=== PATIENT | female | born 1960 | race Caucasian/White ===

== ENCOUNTER → 2024-09-07 | Outpatient (CLI) | payer OTHER, SELFPAY ==
--- NOTE | 2024-09-07 | XR_ITS ---
Examination: PA lateral chest 2 views TECHNIQUE: Upright PA lateral chest 2 views INDICATIONS: COPD with difficulty breathing today. FINDINGS: Moderate hyperexpansion Normal heart size No pneumonia or pulmonary edema Partial visualization orthopedic hardware right humerus IMPRESSION: COPD No pneumonia or pulmonary edema
== END | disposition home or self-care (01) ==
PROVIDERS: PCP Nurse Practitioner Family; Referring Provider Nurse Practitioner Family; Visit Provider Nurse Practitioner Family
DX: J44.9 Chronic obstructive pulmonary disease, unspecified (principal)
CPT/HCPCS: 71046

== ENCOUNTER → 2024-10-23 | Outpatient (CLI) | payer OTHER, SELFPAY ==
--- NOTE | 2024-10-23 11:30 | XR_ITS ---
Examination: CT soft tissue neck, with intravenous contrast. 2-D coronal reconstructions. 2-D sagittal reconstructions. Date and time of exam :October 23, 2024 1205 hours INDICATIONS: Difficulty swallowing one month with palpable lymph nodes in the neck. CTDI: vol (mGy):12.7 DLP: (mGycm):355 Technique: 1.25 mm axial sections of the neck of the obtained. Coronal and sagittal reconstructions have been obtained. Intravenous contrast administered 50 cc Isovue-370. Low dose protocols were performed. One or more of the following dose reduction techniques were used; automated exposure control, adjustment of the mA and/or KV according to patient size, use of iterative reconstruction technique. Findings: Acute bilateral maxillary sinusitis Moderate hypertrophy right inferior nasal turbinate Symmetrical nasopharynx oropharynx Symmetrical submandibular glands Symmetrical parotid glands No pathologic carotid triangle submental or posterior cervical lymphadenopathy 7 mm left thyroid nodule Normal epiglottis No prevertebral soft tissue prominence Advanced degenerative disc disease C4-C5 IMPRESSION: Acute bilateral maxillary sinusitis No pathologic cervical lymphadenopathy 7 mm left thyroid nodule, recommend dedicated thyroid sonography follow-up Normal epiglottis Advanced degenerative disc disease C4-C5 Given the patient's presentation, consider elective fluoroscopically guided esophagram follow-up
== END | disposition home or self-care (01) ==
LOC: SCAT 10:50
PROVIDERS: PCP Family Medicine; Referring Provider Nurse Practitioner Family; Visit Provider Nurse Practitioner Family
DX: J32.0 Chronic maxillary sinusitis (principal); E04.1 Nontoxic single thyroid nodule; M50.321 Other cervical disc degeneration at C4-C5 level
CPT/HCPCS: 70491; A4649; Q9967

== ENCOUNTER → 2024-12-07 | Outpatient (CLI) | payer OTHER, SELFPAY ==
--- NOTE | 2024-12-07 15:00 | XR_ITS ---
Examination: Thyroid sonography complete TECHNIQUE: Grayscale sonographic images thyroid lobes are carful analysis Exam date and time: December 07, 2024 1503 hours INDICATIONS: Thyroid nodule on CT examination soft tissue October 23, 2024 FINDINGS: Right thyroid 4.8 cm Upper pole nodule 7 x 5 mm Left thyroid 4.5 cm Midpole nodule 12 x 12 mm Lower pole nodule 7 x 4 mm IMPRESSION: Bilateral thyroid nodules as above
== END | disposition home or self-care (01) ==
LOC: CDIM 14:42
PROVIDERS: PCP Nurse Practitioner Family; Referring Provider Nurse Practitioner Family; Visit Provider Nurse Practitioner Family
DX: E04.2 Nontoxic multinodular goiter (principal)
CPT/HCPCS: 76536

== ENCOUNTER → 2024-12-10 | Outpatient (CLI) | payer OTHER, SELFPAY ==
--- NOTE | 2024-12-10 08:30 | XR_ITS ---
Examination: CT right ankle, without contrast. 2-D sagittal reconstructions. 2-D coronal reconstructions. 3-D reconstructions. Date and time of exam:December 10, 2024 0816 hours INDICATIONS: Injury to the ankle one year ago, ankle pain CTDI: vol (mGy):4.79 DLP: (mGycm):133 Technique: Multiple 1.25 mm axial sections of the right ankle have been obtained. 2-D sagittal and coronal reconstructions have been obtained. 3-D reconstructions have been obtained. Low dose protocols were performed. One or more of the following dose reduction techniques were used; automated exposure control, adjustment of the mA and/or KV according to patient size, use of iterative reconstruction technique. Findings: Distal tibia and distal fibula intact Old bone density at the fibular tip Mild narrowing tibiotalar joint and subtalar joint Talus, calcaneous intact, tiny plantar posterior bony calcaneal spurs Navicular cuboid cuneiforms and metatarsals visualized intact IMPRESSION: Mild osteoarthritis No acute fracture Consider MRI ankle without contrast follow-up
== END | disposition home or self-care (01) ==
PROVIDERS: Referring Provider Podiatrist; Visit Provider Podiatrist
DX: M19.071 Primary osteoarthritis, right ankle and foot (principal); S99.911S Unspecified injury of right ankle, sequela; X58.XXXS Exposure to other specified factors, sequela
CPT/HCPCS: 73700

== ENCOUNTER → 2024-12-15 | Outpatient (CLI) | payer OTHER, SELFPAY ==
--- NOTE | 2024-12-15 15:15 | XR_ITS ---
Examination: Screening digital mammography, bilateral Computer aided detection 3-D breast Tomosynthesis, bilateral Date and time of exam: December 15, 2024 1440 hours COMPARISON: December 04, 2023 Indication: Screening, family history breast cancer Technique: Nonmagnified MLO, CC views of the breasts to been obtained, reconstructed from 3-D Tomosynthesis images. R2 computer aided detection program utilized for evaluation of suspicious masses and/or abnormal calcifications. 3-D Tomosynthesis images obtained. Findings: Scattered areas of fibroglandular density. Benign calcifications. No interval suspicious masses Impression: BI-RADS category II: Benign Findings. Recommend 1 year follow-up mammogram.
== END | disposition home or self-care (01) ==
LOC: CDIM 14:18
PROVIDERS: Referring Provider Nurse Practitioner Family; Visit Provider Nurse Practitioner Family
DX: Z12.31 Encounter for screening mammogram for malignant neoplasm of breast (principal); R92.323 Mammographic fibroglandular density, bilateral breasts; R92.1 Mammographic calcification found on diagnostic imaging of breast
CPT/HCPCS: 77063; 77067

== ENCOUNTER 2025-07-23 19:48 | Emergency (ER) | payer OTHER, SELFPAY ==
[2025-07-23 19:53] VITALS: PULSE 82; RESP 18; O2SAT 96; BMI 37.2
--- NOTE | 2025-07-23 19:58 | XR_ITS ---
Examination: Shoulder, left, 3 views Technique: Shoulder AP internal rotation, AP external rotation, Y view shoulder, 3 views Exam date and time : July 23, 2025, 2024 hours INDICATION: Patient fell today with injury to the shoulder, shoulder pain. FINDINGS: Acute fractures proximal humerus, up to 24 mm offset of the main fracture fragments No shoulder dislocation Clavicle intact IMPRESSION: Acute displaced comminuted fractures proximal humerus
--- NOTE | 2025-07-23 19:58 | XR_ITS ---
Examination: CT brain head without contrast. 2-D sagittal coronal reconstructions Date and time of exam: July 23, 20252016 hours INDICATION: Patient fell today with injury to head, pain involving the back of the head CTDI: vol (mGy): 46.7 DLP: (mGycm): 957 Technique: Multiple CT axial sections of the brain have been obtained, 5 mm slice thickness. Contrast has not been administered. 2-D sagittal, coronal reconstructions have been obtained Low dose protocols were performed. One or more of the following dose reduction techniques were used; automated exposure control, adjustment of the mA and/or KV according to patient size, use of iterative reconstruction technique. Findings: No significant ventricular enlargement. Intra-axial or extra-axial hemorrhage density is not seen. No mass effect or midline shift Basal cisterns are not remarkable. Fourth ventricle is midline. Cranial vault intact. Significant sinusitis including left maxillary acute sinusitis Impression: Negative for acute hemorrhage, mass effect or midline shift
[2025-07-23 19:59] VITALS: BP 112/58; PULSE 80; RESP 15; TEMP 36.9; O2SAT 95
--- NOTE | 2025-07-23 20:01 | EDNOTE_ITS ---
ED Fall Injury RME/HPI General Chief Complaint: Fall Stated Complaint: FALL Time Seen by Provider: 07/23/25 19:55 Arrival date/time: 07/23/25 19:48 64-year-old female patient was brought in by EMS for evaluation regarding ground-level fall. Patient sustained a ground-level fall, after patient stepped on a garden hose resulting into pain to the left shoulder, with deformity. Patient also sustained abrasion to the right forearm. Denies any head injury denies any neck pain. Patient is not taking any blood thinner except for aspirin. No medication was taken prior to ER visit. Related Data Home Medications ?Medication ?Instructions ?Recorded ?Confirmed albuterol 90 mcg-budesonide 80 2 inh inhalation QDAY P RN 05/06/24 06/30/24 mcg/actuation HFA aerosol inhaler Shortness Of Breath (Airsupra) aspirin 81 mg tablet,delayed 81 mg PO QDAY 05/06/24 release budesonide 160 mcg-glycopyr 9 2 inh inhalation BID 06/30/24 mcg-formot 4.8 mcg/actuation HFA inhaler (Breztri Aerosphere) duloxetine 60 mg capsule,delayed 60 mg PO QDAY 4 06/30/24 release (Cymbalta) hydrochlorothiazide 25 mg tablet 25 mg PO QAM 05/06/24 07/02/24 hydrocodone 10 mg-acetaminophen 1 tab PO BID PRN Pain 05/06/24 06/30/24 325 mg tablet losartan 100 mg tablet 100 mg PO QDAY 05/06/2406/23 metformin 1,000 mg tablet 500 mg PO BID 05/06/2406/30 omeprazole 40 mg capsule,delayed 40 mg PO QDAY 4 06/30/24 release pregabalin 100 mg capsule (Lyrica) 100 mg PO BID 05/0607/02/24 simvastatin 40 mg tablet (Zocor) 40 mg PO QPM 05/06/24 06/30/24 topiramate 50 mg tablet (Topamax) 50 mg PO HS 05/06/24 06/30/24 dulaglutide 3 mg/0.5 mL 3 mg subcut QWEEK 06/30/24 1 subcutaneous pen injector (Trulicity) Allergies Allergy/AdvReac Type Severity Reaction Status Date / Time No Known Allergies Allergy Verified 07/02/24 11:11 Review of Systems Review of Systems Narrative Review of Systems: Review of system reviewed and within normal limits except mentioned in HPI ED Exam Narrative Physical exam: VITAL SIGNS: Reviewed. GENERAL APPEARANCE: Alert and interactive, follows commands, no acute distress, HEAD AND FACE: Non-traumatic. ENT: PERRL, pink conjunctivitis, eyelid no trauma, Mucous membrane moist. NECK: Supple, nontender, no nuchal rigidity. CHEST: No tenderness, no crepitus, no paradoxical movement, no retractions. LUNGS: Clear, well ventilated, symmetric, no rales, no wheezing, no ronchi, no stridor, good breath sounds bilaterally. HEART: Regular rate, regular rhythm, no murmur, no gallops. ABDOMEN: Soft, positive bowel sounds, nondistended, no guarding, nontender, no rebound, no masses, RECTAL: Deferred. GENITAL: Deferred. NEUROLOGICAL: Gross motor function intact sensory function intact, Appropriate for age. MUSCULOSKELETAL: low back nontender, full range of motion. EXTREMITIES: Left arm tenderness, no swelling, with limitation range of motion. Distal neurovascular status intact. Right forearm abrasion, no deformity nontender SKIN: Color pink, dry, no rash, no lacerations, no abrasions, no contusions. LYMPHATICS: Deferred. Course Quality Measures none Orders Category Date Time Status sling [Splint / Immobilizer] STAT Care 07/23/25 19:[address] head/brain wo con Stat Exams 07/23/25 19:58 Completed XR shoulder LT min 2V Stat Exams 07/23/25 19:58 Completed Morphine* Inj Med 07/23/25 19:58 Discontinued 4 mg IM X1 ONE Morphine* Inj Med 07/23/25 20:14 Discontinued 4 mg IVP X1 ONE Ondansetron Inj [Zofran Inj] Med 07/23/25 20:14 Discontinued 4 mg IVP X1 ONE Ondansetron Odt [Zofran Odt] Med 07/23/25 19:58 Discontinued 4 mg PO X1 ONE Vital Signs Vital signs: Vital Signs Temperature 98.4 F 07/23/25 19:59 Pulse Rate 80 07/23/25 19:59 Respiratory Rate 15 07/23/25 19:59 Blood Pressure 112/58 L 07/23/25 19:59 Pulse Oximetry (%) 95 07/23/25 19:59 Oxygen Delivery Method Room Air 07/23/25 19:59 Fall [facility] Narrative [facility] Narrative:: 64-year-old female patient was brought in by EMS for evaluation regarding ground-level fall. Patient sustained a ground-level fall, after patient stepped on a garden hose resulting into pain to the left shoulder, with deformity. Patient also sustained abrasion to the right forearm. Denies any head injury denies any neck pain. Patient is not taking any blood thinner except for aspirin. No medication was taken prior to ER visit. CT scan of the head came back unremarkable. X-ray of the shoulder showed comminuted fracture of the proximal humerus. Patient was placed in a sling. Patient is able to ambulate without so much pain to the left arm. Patient was advised to follow-up with PCP in 1 to 2 days for referral to orthopedic surgeon for definitive management of the proximal humerus fracture. Post application of sling there is no changes in the neurovascular status. Distal neurovascular status intact. Left upper extremity. Stable for charged home Patient data External records reviewed:: None Clinical information provided by:: patient and family Social determinants that could affect healthcare access:: none Patient has the following chronic illnesses:: Chronic pain syndrome hypertension diabetes mellitus How is presenting disease/condition affected by chronic disease/condition?: exacerbated by Evaluation data The following diagnostics were reviewed and interpreted by me:: radiology exam(s) Lab and/or radiology exams considered but not ordered:: None Interpretation Summary: See results [facility] Medications / Prescriptions Medications or Prescriptions considered but not ordered:: None Medication administrations:: Medication Administration History Discontinued Medications Morphine Sulfate (Morphine Sulf Inj 4 Mg/Ml Vial) 4 mg IM X1 ONE Stop: 07/23/25 19:59 Last Admin: 07/23/25 20:14 Dose: Not Given Documented By: EF Non-Admin Reason: Cancelled by Provider Morphine Sulfate (Morphine Sulf Inj 4 Mg/Ml Vial) 4 mg IVP X1 ONE Stop: 07/23/25 20:15 Last Admin: 07/23/25 20:29 Dose: 4 mg Documented By: EF Ondansetron HCl (Ondansetron Odt 4 Mg Tabrap) 4 mg PO X1 ONE; Protocol Stop: 07/23/25 19:59 Last Admin: 07/23/25 20:14 Dose: Not Given Documented By: EF Non-Admin Reason: Cancelled by Provider Ondansetron HCl (Ondansetron Inj 2 Mg/Ml Inj 2 Ml) 4 mg IVP X1 ONE; Protocol Stop: 07/23/25 20:15 Last Admin: 07/23/25 20:28 Dose: 4 mg Documented By: EF Morphine and Zofran Consultations Consultation(s) initiated? (list below): No Diagnosis Fall Differential Diagnosis: other (Left proximal humerus fracture, status post fall, intracranial bleed) Most likely diagnosis given after review of the tests above:: Left proximal humerus fracture status post fall Admission Indicated Admission indicated?: not indicated Admission Request Was there a request for admission?: No Disposition Plan Disposition Plan: Discharge Discharge Attestation Discharge Attestation: The patient and all family members were given an opportunity to ask questions and understood the discharge instructions. Discharge instructions specifically effects, indications for sooner follow up or return to the emergency department, and the expected course of current diagnosis. Patient condition: Stable Discharge Plan Plan Patient Disposition: HOME (Self Care) Discharge Disposition comment: Stable Prescriptions/Referrals Prescriptions/Med Rec: No Action hydrocodone-acetaminophen 10-325 mg Tablet 1 tab PO BID PRN (Reason: Pain) omeprazole 40 mg Capsule,Delayed Release(Dr/Ec) 40 mg PO QDAY aspirin 81 mg Tablet,Delayed Release (Dr/Ec) 81 mg PO QDAY simvastatin [Zocor] 40 mg Tablet 40 mg PO QPM metformin 1,000 mg Tablet 500 mg PO BID hydrochlorothiazide 25 mg Tablet 25 mg PO QAM losartan 100 mg Tablet 100 mg PO QDAY topiramate [Topamax] 50 mg Tablet 50 mg PO HS duloxetine [Cymbalta] 60 mg Capsule,Delayed Release(Dr/Ec) 60 mg PO QDAY pregabalin [Lyrica] 100 mg Capsule 100 mg PO BID Breztri Aerosphere 160-9-4.8 mcg/actuation Hfa Aerosol Inhaler 2 inh INHALATION BID Airsupra 90-80 mcg/actuation Hfa Aerosol Inhaler 2 inh INHALATION QDAY PRN (Reason: Shortness Of Breath) Trulicity 3 mg/0.5 mL Pen Injector 3 mg SUBCUT QWEEK Referrals: Bret Pimentel[facility]MD [Primary Care Provider, Family Practice] - In 1 week Problem List Clinical Impression: Fracture of proximal end of left humerus Patient/Caregiver Discharge Instructions Discharge Activity: activity as tolerated Education Materials: Understanding a Humerus Fracture Additional Instructions: Thank you for the opportunity for serving you today. You are stable for discha rged . You are advised to: Follow-up with your PCP in 1 to 2 days and ask your PCP to refer you to orthopedic surgeon Return to ED for worsening of symptoms Increase oral fluids Take your on oxycodone for pain Wear your arm sling as needed Print Language: Greenlandic Stand Alone Forms: Nieves Award Info., Patient Portal Info Letter PA/DISHWASHING MACHINE REPAIRER Supervising Physician PA/DISHWASHING MACHINE REPAIRER Supervising Physician: MD Jas
[2025-07-23] MEDS: ONDANSETRON INJ 2 MG/ML INJ 2 ML 4 MG IVP (20:28)
[2025-07-23] MEDS: MORPHINE SULF INJ 4 MG/ML VIAL IVP (20:29)
[2025-07-23 21:52] VITALS: BP 121/63; PULSE 81; RESP 16; TEMP 36.8; O2SAT 95
== END 2025-07-23 21:55 | disposition home or self-care (01) ==
PROVIDERS: Emergency Provider Emergency Medicine; PCP Family Medicine
DX: S42.202A Unspecified fracture of upper end of left humerus, initial encounter for closed fracture (principal); S50.811A Abrasion of right forearm, initial encounter; W18.30XA Fall on same level, unspecified, initial encounter
CPT/HCPCS: 70450; 73030; 96374; 96375; 99283; A4565; J2270; J2405

== ENCOUNTER → 2025-07-28 | Outpatient (CLI) | payer OTHER, SELFPAY ==
--- NOTE | 2025-07-28 09:17 | XR_ITS ---
EXAMINATION: Sinus series 4 views TECHNIQUE: Yeimi Sky lateral submentovertex sinus series 4 views Date and time: July 28, 2025, 1001 hours INDICATIONS: Sinus pressure and pain and drainage 3 months. FINDINGS: Mild opacity in the frontal ethmoid air cells Total opacification left maxillary antrum and significant mucosal disease right maxillary antrum Opacification of the sphenoid air cells No shirley cortical bone destruction Moderate hypertrophy right inferior nasal turbinate IMPRESSION: Chronic pansinusitis, severe involving the maxillary antra
== END | disposition home or self-care (01) ==
PROVIDERS: PCP Nurse Practitioner Family; Referring Provider Nurse Practitioner Family; Visit Provider Nurse Practitioner Family
DX: J32.4 Chronic pansinusitis (principal)
CPT/HCPCS: 70220

== ENCOUNTER → 2025-08-02 | Outpatient (CLI) | payer OTHER, SELFPAY ==
--- NOTE | 2025-08-02 | XR_ITS ---
Examination: Shoulder, left, 3 views Technique: Shoulder AP internal rotation, AP external rotation, Y view shoulder, 3 views Exam date and time : August 02 2025 1155 hours INDICATIONS: Patient fell 10 days ago with fracture proximal humerus FINDINGS: Fracture proximal humerus again noted No significant change in offset at the main fracture site No shoulder dislocation IMPRESSION: Stable alignment displaced fracture proximal humerus
--- NOTE | 2025-08-02 | XR_ITS ---
EXAMINATION: Left hand 2 views TECHNIQUE: AP lateral left hand 2 views Date and time: August 02, 2025, 1155 hours INDICATIONS: Patient fell 10 days ago with injury of the hand, hand pain. FINDINGS: Old healed fracture distal radius No acute fracture No dislocation IMPRESSION: No acute fracture
--- NOTE | 2025-08-02 | XR_ITS ---
EXAMINATION: Ankle, left 3 views. Technique: Ankle AP, oblique, lateral 3 views Date and time of exam: August 02, 2025, 1155 hours INDICATIONS: Patient fell 10 days ago with injury to ankle, ankle pain. FINDINGS: No fracture or dislocation Large plantar bony calcaneal spur IMPRESSION: No fracture or dislocation
== END | disposition home or self-care (01) ==
LOC: CDIM 11:24
PROVIDERS: Referring Provider Nurse Practitioner Family; Visit Provider Nurse Practitioner Family
DX: S42.392A Other fracture of shaft of left humerus, initial encounter for closed fracture (principal); S69.92XA Unspecified injury of left wrist, hand and finger(s), initial encounter; S99.912A Unspecified injury of left ankle, initial encounter; W19.XXXA Unspecified fall, initial encounter
CPT/HCPCS: 73030; 73120; 73610

== ENCOUNTER → 2025-08-11 | Outpatient (CLI) | payer OTHER, SELFPAY ==
--- NOTE | 2025-08-11 08:27 | XR_ITS ---
Examination: Left elbow 3 views Technique: Elbow AP, oblique, lateral 3 views Exam date and time: August 11 2025, 0845 hours INDICATIONS: Pain after falling July 23, 2025, surgery to the elbow 2020. FINDINGS: Healed fracture olecranon with satisfactory alignment Satisfactory position olecranon orthopedic hardware Satisfactory position prosthetic radial head Orthopedic screw traverses the lateral humeral condylar region Posttraumatic advanced osteoarthritic elbow Small elbow effusion. No acute fracture IMPRESSION: Advanced posttraumatic osteoarthritis elbow
--- NOTE | 2025-08-11 08:27 | XR_ITS ---
Examination: Shoulder, left, 3 views Technique: Shoulder AP internal rotation, AP external rotation, Y view shoulder, 3 views Exam date and time : August 11, 2025, 0845 hours INDICATIONS: Acute fracture proximal humerus July 23, 2025 FINDINGS: Stable alignment fracture, comminuted proximal humerus with early healing Early bony callus formation is noted IMPRESSION: Early healing comminuted fracture proximal humerus with stable alignment
--- NOTE | 2025-08-11 08:27 | XR_ITS ---
Examination: Fingers, left hand first digit 3 views Technique: AP, oblique, lateral views Date and time: August 11, 2025, 0845 hours INDICATIONS: Patient fell July 23, 2025 with injury to the hand first digit pain FINDINGS: No acute fracture Prominent osteopenia Significant osteoarthritis first carpometacarpal joint IMPRESSION: No acute fracture.
== END | disposition home or self-care (01) ==
PROVIDERS: PCP Nurse Practitioner Family; Referring Provider Nurse Practitioner Family; Visit Provider Nurse Practitioner Family
DX: S42.352A Displaced comminuted fracture of shaft of humerus, left arm, initial encounter for closed fracture (principal); S69.92XA Unspecified injury of left wrist, hand and finger(s), initial encounter; W19.XXXA Unspecified fall, initial encounter; M19.122 Post-traumatic osteoarthritis, left elbow
CPT/HCPCS: 73030; 73080; 73140

== ENCOUNTER → 2025-08-23 | Outpatient (CLI) | payer OTHER, SELFPAY ==
--- NOTE | 2025-08-23 | XR_ITS ---
Examination: Shoulder, left, 3 views Technique: Shoulder AP internal rotation, AP external rotation, Y view shoulder, 3 views Exam date and time : August 23, 2025, 0737 hours, comparison August 11, 2025, August 02, 2025, July 23, 2025 INDICATIONS: Acute fracture proximal humerus July 23, 2025. FINDINGS: Stable alignment fractures proximal humerus Interval significant partial healing with bony callus formation No shoulder dislocation IMPRESSION: Stable alignment with partial healing fracture proximal humerus
== END | disposition home or self-care (01) ==
LOC: CDIM 07:24
PROVIDERS: PCP Family Medicine; Referring Provider Orthopaedic Surgery; Visit Provider Orthopaedic Surgery
DX: S42.202A Unspecified fracture of upper end of left humerus, initial encounter for closed fracture (principal); X58.XXXA Exposure to other specified factors, initial encounter
CPT/HCPCS: 73030

== ENCOUNTER → 2025-08-25 | Outpatient (CLI) | payer OTHER, SELFPAY ==
--- NOTE | 2025-08-25 13:25 | XR_ITS ---
EXAMINATION: Left elbow 2 views TECHNIQUE: AP lateral left elbow 2 views Date and time: August 25, 2025, 1400 hours, comparison August 11, 2025 INDICATIONS: Elbow surgery 2022, patient fell with injury to the elbow July 23, 2025 COMPARISON: August 11, 2025 FINDINGS: No acute fracture Orthopedic screw the lateral humeral condylar region Prosthetic radial head satisfactory position Healed fracture olecranon with orthopedic hardware Advanced elbow osteoarthritis Small elbow effusion IMPRESSION: Advanced elbow osteoarthritis No acute fracture
== END | disposition home or self-care (01) ==
PROVIDERS: PCP Family Medicine; Referring Provider Orthopaedic Surgery; Visit Provider Orthopaedic Surgery
DX: M19.022 Primary osteoarthritis, left elbow (principal)
CPT/HCPCS: 73070